=== PATIENT | female | born 1945 | race Caucasian/White ===

== ENCOUNTER → 2019-03-31 | Outpatient (CLI) | payer MEDICARE ==
[~2019-03-31] MED LIST: IOHEXOL 350 MG/ML 100 ML VIAL. IV ONE
[2019-03-31 12:58] LABS: CREATININE 0.9 mg/dL (0.6-1.0); GFR 61.2
--- NOTE | 2019-03-31 14:58 | RAD ---
Examination: CT chest IV contrast HISTORY: History of chest pain, history of pulmonary embolus COMPARISON: None available TECHNIQUE: Axial CT angiography images were performed with IV contrast. Coronal and sagittal 3-D MIP reformats are performed. Exposure: One or more of the following individualized dose reduction techniques were utilized for this examination: 1. Automated exposure control 2. Adjustment of the mA and/or kV according to patient size 3. Use of iterative reconstruction technique FINDINGS: The central airways are patent. Coronary artery calcifications identified. The ascending aorta measures 3.4 cm in transverse dimension. No evidence of filling defect identified in the main pulmonary arterial trunk and right and left main pulmonary arteries and the visualized lobar, segmental branches of the pulmonary arteries. Minimal bibasilar lung atelectasis. The visualized liver, spleen, adrenals grossly appears unremarkable. Moderate degenerative changes thoracic spine. IMPRESSION: 1. No evidence of pulmonary embolism. 2. Coronary artery calcifications. Electronically signed by: Uvaldo Fernandes MD (03/31/2019 2:55 PM) [id number]
== END | disposition home or self-care (01) ==
LOC: CT 12:12
PROVIDERS: ATTEND Internal Medicine Critical Care Medicine
DX: I25.10 Atherosclerotic heart disease of native coronary artery without angina pectoris (principal); J98.11 Atelectasis; M47.814 Spondylosis without myelopathy or radiculopathy, thoracic region; Z86.711 Personal history of pulmonary embolism
CPT/HCPCS: 36415; 71275; 82565; 84520; Q9967